=== PATIENT | male | born 1935 | race Caucasian/White ===

== ENCOUNTER → 2017-03-17 | Outpatient (CLI) | payer MEDICARE, BC ==
--- NOTE | 2017-03-17 16:02 | RAD ---
APPROVED REPORT Patient Location : OUT-PATIENT Indications Deep System Deep Venous Thrombosis present : No Deep Venous Reflux present : No Greater Saphenous Veins (GSV) Significant venous relux noted in the RIGHT GSV at the following levels : Superficial Femoral Junctio n, Proximal Thigh, Mid Thigh, Distal Thigh, Proximal Calf, Mid Calf, Distal Calf Significant venous relux noted in the LEFT GSV at the following levels : Superficial Femoral Junction , Proximal Thigh, Mid Thigh, Distal Thigh, Proximal Calf, , Mid Calf, Distal Calf Findings Cruz scale images of the bilateral saphenofemoral junctions do not reveal any evidence of thrombus. L imited grayscale images of the great saphenous vein do not reveal any evidence of thrombus. Limited i mages of the lesser saphenous vein also do not reveal any evidence of thrombus. The right great saphe nous vein measures approximately 4.4 mm in greatest diameter and has a reflux time of 4.2 seconds. Th e left great saphenous vein measures approximately 7.5 mm in greatest diameter and has a reflux time of 4.3 seconds. The bilateral lesser saphenous veins do not demonstrate any evidence of reflux. Critical Notification Critical Value: No <Conclusion> Positive for reflux in the bilateral greater saphenous veins.
--- NOTE | 2017-03-17 16:07 | RAD ---
APPROVED REPORT Patient Location: OUT-PATIENT Indications Rest Pain:Bilaterally VELOCITY AND DOPPLER WAVEFORM ANALYSIS RIGHT cm/secWaveformSeverity LEFT c m/secWaveformSeverity Ext Iliac Art. 103.0BiphasicExt Iliac Art. 79.0Biphasic pCFA 114.0BiphasicpCFA 101.0Biphasic dCFA 99.0BiphasicdCFA 91.0Biphasic Prof Fem Art. 57.0BiphasicProf Fem Art. 50.0Biphasic Fem Art Prox. 119.0BiphasicFem Art Prox. 98.0Biphasic Fem Art Mid. 102.0BiphasicFem Art Mid. 106.0Biphasic Fem Art Dist. 65.0BiphasicFem Art Dist. 85.0Biphasic Pop Art(AK) 75.0BiphasicPop Art(AK) 71.0Biphasic Pop Art(BK) 61.0BiphasicPop Art(BK) 72.0Biphasic ICE PULLER Prox. 43.0BiphasicPTA Prox. 62.0Biphasic ICE PULLER Dist. 23.0BiphasicPTA Dist. 105.0Biphasic Per Art Mid. 87.0BiphasicPer Art Mid. 63.0Biphasic CECILLE Prox. 67.0BiphasicATA Prox. 64.0Biphasic Image Findings Cruz scale images, spectral waveforms and color Doppler of the bilateral lower extremity arterial ves sels revealed the following findings: Velocities in the right common femoral, superficial femoral and popliteal segments are grossly normal . The distal posterior tibial artery on the right side appears to be diffusely diseased of greater th an 75% stenosis. The risks patency of the peroneal and anterior tibial vessels with likely 50% stenos is of the distal anterior tibial artery. No high-grade flow-limiting stenosis is identified above the knee. The left common femoral, superficial femoral and popliteal vessels do not demonstrate any evidence of high-grade disease. There is three-vessel runoff below the knee without any focal stenosis. Critical Notification Critical Value: No <Conclusion> 1. 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 No high-grade large vessel flow-limiting stenosis noted bi laterally.
--- NOTE | 2017-03-17 16:10 | RAD ---
APPROVED REPORT Bilateral Lower Extremity Venous Study for DVT Patient Location: OUT-PATIENT Indications Lower Extremity Pain: Bilateral Vein Imaging (Right) CFV (R): Compressible SFJ (R): Compressible FEM (R): Compressible POP (R): Compressible DFV (R): Compressible PTV (R): Spontaneous Peroneals (R): Spontaneous Vein Imaging (Left) CFV (L): Compressible SFJ (L): Compressible FEM (L): Compressible POP (L): Compressible DFV (L): Compressible PTV (L): Spontaneous Peroneals (L): Spontaneous Doppler Evaluation (Right) CFV (R): Spontaneous POP (R):Spontaneous Doppler Evaluation (Left) CFV (L):Spontaneous POP (L):Spontaneous Findings Limited grayscale images of the bilateral common femoral, superficial femoral, popliteal veins do not reveal any evidence of thrombus. There is normal compressibility and color Doppler flow noted. Bilaterally the below-knee veins are not well visualized but there is spontaneous flow noted. Critical Notification Critical Value: No <Conclusion> No evidence of DVT in the bilateral lower extremities.
== END | disposition home or self-care (01) ==
LOC: US 07:48
PROVIDERS: ATTEND Internal Medicine Cardiovascular Disease
DX: M79.604 Pain in right leg (principal); M79.605 Pain in left leg; M79.89 Other specified soft tissue disorders; K21.9 Gastro-esophageal reflux disease without esophagitis
CPT/HCPCS: 93925; 93970

== ENCOUNTER → 2019-02-02 | Outpatient (CLI) | payer MEDICARE, BC ==
[2019-02-02 11:44] LABS: BASO % 0 % (0-3); EOS # 0.1 x10^3/uL (0.0-0.7); EOS % 1 % (0-3); HEMATOCRIT 39.9 % (39.0-53.0); HEMOGLOBIN 13.4 g/dL (13.0-17.5); LYMPH # 0.5 x10^3/uL (1.0-4.8); LYMPH % 9 % (24-48); MEAN CORPUSCULAR HEMOGLOBIN 30 pg (25-35); MEAN CORPUSCULAR HGB CONC 34 g/dL (31-37); MEAN CORPUSCULAR VOLUME 88 fL (79-100); MONO # 0.6 x10^3/uL (0.0-1.1); MONO % 10 % (0-9); NEUT # 4.2 x10^3/uL (1.8-7.7); NEUT % 79 % (31-73); PLATELET COUNT 184 x10^3/uL (140-400); RED BLOOD COUNT 4.53 x10^6/uL (4.30-5.70); RED CELL DISTRIBUTION WIDTH 13.4 % (11.5-14.5); WHITE BLOOD COUNT 5.3 x10^3/uL (4.0-11.0)
[2019-02-02 12:06] LABS: CALCIUM 9.1 mg/dL (8.5-10.1); CREATININE 1.6 mg/dL (0.7-1.3); GFR 41.7; MAGNESIUM 2.1 mg/dL (1.8-2.4)
== END | disposition home or self-care (01) ==
LOC: LAB 11:00
PROVIDERS: ATTEND Internal Medicine Cardiovascular Disease
DX: I10 Essential (primary) hypertension (principal); R55 Syncope and collapse; N28.89 Other specified disorders of kidney and ureter
CPT/HCPCS: 36415; 80048; 83735; 84443; 85025

== ENCOUNTER 2019-03-14 09:11 | Observation (INO) | payer MEDICARE, BC ==
[2019-03-14] VITALS (15 sets, daily range): BP systolic 90–151; BP diastolic 62–80
[~2019-03-14] VITALS: Ht 170.2 cm; Wt 76.5 kg
[~2019-03-14 09:11] MED LIST: ceFAZolin 2GM PREMIX 2 GM/50 ML BAG IV ONE
--- NOTE | 2019-03-14 09:47 | EKG ---
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
[2019-03-14 09:52] LABS: HEMATOCRIT 39.8 % (39.0-53.0); HEMOGLOBIN 13.2 g/dL (13.0-17.5); RED BLOOD COUNT 4.45 x10^6/uL (4.30-5.70); RED CELL DISTRIBUTION WIDTH 13.9 % (11.5-14.5); WHITE BLOOD COUNT 5.2 x10^3/uL (4.0-11.0)
[2019-03-14] MEDS ORDERED: ASPI1TAB88 PO (09:56)
[2019-03-14] MEDS ORDERED: ASPI81TA50 PO (09:56)
[2019-03-14] MEDS ORDERED: TRIA1CAP3 PO (09:56)
[2019-03-14 10:08] LABS: CALCIUM 9.2 mg/dL (8.5-10.1); CREATININE 1.7 mg/dL (0.7-1.3); GFR 38.9
[2019-03-14 10:09] LABS: PROTHROMBIN TIME PATIENT 13.6 SEC (11.7-14.0)
[2019-03-14] MEDS ORDERED: BACITRACIN 50,000 UNIT in IV NORMAL SALINE 250ML 250 ML IRR ONE (11:00)
[2019-03-14] MEDS ORDERED: IODIXANOL 320 MG/ML 100 ML VIAL. ONE (11:26)
[2019-03-14] MEDS ORDERED: fentaNYL PF VIAL 100 MCG/2 ML VIAL ONE (11:34)
[2019-03-14] MEDS ORDERED: MIDAZOLAM HCL/PF 2 MG/2 ML VIAL. ONE ×2 (11:34→12:12)
[2019-03-14] MEDS ORDERED: LIDOCAINE 2%/EPI 1:100,000 20 ML VIAL. ONE (11:40)
[2019-03-14] MEDS ORDERED: IOHEXOL 300 MG/ML 100ML VIAL. ONE (12:11)
[2019-03-14] MEDS ORDERED: MIDAZOLAM HCL/PF 2 MG/2 ML VIAL. IV ONE (12:30)
[2019-03-14] MEDS ORDERED: IOHEXOL 300 MG/ML 100ML VIAL. IV ONE (12:30)
[2019-03-14] MEDS ORDERED: LIDOCAINE 2%/EPI 1:100,000 20 ML VIAL. IJ ONE (12:30)
[2019-03-14] MEDS ORDERED: fentaNYL PF VIAL 100 MCG/2 ML VIAL IV ONE (12:30)
--- NOTE | 2019-03-14 13:04 | PDOC ---
MODERATE SEDATION ASSESSMENT RISKS/ALTERNATIVES Risks/Alternatives Risks and alternatives of this type of sedation and procedure discussed with: RISK/ALTERNATIVES: Patient H & P ON CHART H & P H & P on chart and reviewed for co-morbid conditions and appropriate labs. H&P ON CHART: Yes STATUS PREG STATUS ASSESSED: N/A MEDS/ALLERGIES REVIEWED Meds/Allergies Reviewed Medications and Allergies including time and route of recently administered narcotics and sedatives. MEDS/ALLERGIES REVIEWED: Yes ASA RATING ASA RATING: II AIRWAY ASSESSMENT Airway Assessment Airway patency, oral function limitations, presence of caps, crowns, dentures, partials, and ability to extend neck assessed. AIRWAY ASSESSMENT: Yes MALLAMPATI SCORE MALLAMPATI SCORE: II PRE-SEDATION ASSESSMENT PRE-SEDATION ASSESSMENT: Yes KIRT DOUGLAS MD Mar 14, 2019 13:04
--- NOTE | 2019-03-14 13:10 | NUR ---
The patient, ADRIENNE PEDRAZA, 83 y/o, M admitted by KIRT DOUGLAS MD, was given written information regarding hospital policies, unit procedures and contact persons. 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 Patient alert and oriented, VS stable, no complaints of pain. Pressure dressing and immobilizer in place. Call light within reach. Will continue to monitor.
[2019-03-14] MEDS ORDERED: NO ANTICOAGULANT THERAPY. MC PRN (13:15)
--- NOTE | 2019-03-14 14:32 | RAD ---
PORTABLE CHEST 1V History: Post pacemaker placement. Comparison: None. Findings: Interval placement left transvenous pacemaker with RA and RV leads. No pneumothorax. Bilateral acromioclavicular DJD. Mild elevation of the left hemidiaphragm. Left basilar linear atelectasis. Normal heart size. No pleural effusion. Impression: 1. Interval placement left sided pacemaker. No pneumothorax. Electronically signed by: Francisco Lora DO (03/14/2019 2:29 PM) [facility]
[2019-03-14] MEDS: TRIAMTERENE/HCTZ 37.5/25MG TABLET. PO SCH (15:00)
--- NOTE | 2019-03-14 15:23 | CARD ---
MR#: [id number] Date of Study: 03/14/2019 Ordering Physician: KIRT RUST, Referring Physician: Amish RODRÍGUEZ: RT Satnam (Roc) APPROVED REPORT PROCEDURES Successful implantation of Biotronik dual-chamber permanent pacemaker Contrast 20ml Sedation Time 51 minutes fluoro time: 2.1 min DAP: 45 Gycm2 INDICATIONS Sick sinus syndrome with pauses of greater than 4.5 seconds and recurrent syncope PROCEDURE After explaining the risks, benefits, and alternative options, informed consent was obtained from the patient. The patient was brought to the cardiac catheterization lab and the left chest and shoulder were prepp ed and draped in a sterile manner. 30 mL of 2% lidocaine was infiltrated into the skin and subcutaneous tissues for local anesthesia. An incision was made over the left infraclavicular fossa and using blunt dissection and cautery a pocke t was created. Venous access was obtained in the left subclavian vein and 8 and 6 Kosovan sheaths inse rted. A Biotronik bipolar active fixation right ventricular lead model Solia, serial #[id number] was advanced under fluoroscopy guidance and the tip was positioned in the right ventricular apex. Following this, a Biotronik bipolar active fixation right atrial lead model Solia, serial #[id number] was positioned i n the right atrial appendage under fluoroscopy guidance. The leads were secured into place and attach ed to a Biotronik dual-chamber permanent pacemaker generator model Eluna 8 -[place] ProMRI, serial #[id number]. This was placed in the pocket that was subsequently closed in 3 layers. Hemostasis was secured. The right ventricular lead showed a sensing amplitude of 5.9 mV, impedance of 636 ohms and a threshol d of 0.7 V. The right atrial lead showed a sensing amplitude of 2.3 mV, impedance of 483 ohms and a t hreshold of 0.7 V. Patient tolerated the procedure well. There were no immediate complications. CONCLUSION Successful implantation of Biotronik dual-chamber permanent pacemaker for symptomatic sick sinus synd gay. Signed by : Kirt Rust, Electronically Approved : 03/14/2019 15:22:52
[2019-03-14] MEDS: ASPIRIN ENTERIC COATED 81 MG TABLET.DR. PO SCH (21:44)
[2019-03-15 03:07] VITALS: BP 125/64
[2019-03-15 07:19] VITALS: BP 122/62
[2019-03-15] MEDS: ASPIRIN ENTERIC COATED 81 MG TABLET.DR. PO SCH (09:00)
[2019-03-15] MEDS: TRIAMTERENE/HCTZ 37.5/25MG TABLET. PO SCH (09:00)
--- NOTE | 2019-03-15 09:53 | NUR ---
Nursing: Patient stated he took his own Maxzide. Patient educated not to take own medications, patient verbalized understanding. Patient takes his aspirin before bed.
[2019-03-15 10:41] VITALS: BP 122/71
--- NOTE | 2019-03-15 11:50 | NUR ---
SS following for discharge planning. SS reviewed pt chart. Pt is from home with spouse and is currently on room air. No discharge needs noted at this time. SS will continue to follow for discharge planning.
--- NOTE | 2019-03-15 12:28 | RAD ---
CHEST PA LATERAL History: Post pacemaker implantation. Comparison: 03/14/2019 portable chest x-ray exam. Findings: Frontal and lateral views of chest were obtained. Lateral view is limited as both of the extremities are not raised and motion is also seen. Dual-lead left-sided pacemaker is present. Leads are intact and in place. The cardiomediastinal silhouette is normal. Pulmonary vasculature is normal. Minimal left basilar discoid atelectasis is present. No pneumothorax. No pleural effusion or pneumothorax is seen. There is no acute bone abnormality. IMPRESSION: Left-sided dual-lead pacemaker with leads in place. No pneumothorax. Minimal left basilar discoid atelectasis.. Electronically signed by: Radhames Mason MD (03/15/2019 12:25 PM) [facility]
--- NOTE | 2019-03-15 12:36 | PDOC3 ---
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 OPERATOR 03/15/19 1236: Discharge Summary Visit Information Date of Admission: Mar 14, 2019 Date of Discharge: Mar 15, 2019 Admitting Diagnosis Comment: SSS, recurrent syncope with pauses Final Diagnosis Recurrent syncope with pauses, SSS, S/P PPM Brief Hospital Course Allergies Allergies Coded Allergies Type Severity Reaction Last Updated Verified No Known Drug Allergies 03/14/19 No Vital Signs Vital Signs Date Time Temp Pulse Resp B/P (MAP) Pulse Ox O2 Delivery O2 Flow Rate FiO2 03/15/19 10:41 98.5 69 16 122/71 (88) 96 Room Air 98.5 03/14/19 12:53 2.0 Lab Results Laboratory Tests Test 03/14/19 09:37 White Blood Count 5.2 x10^3/uL (4.0-11.0) Red Blood Count 4.45 x10^6/uL (4.30-5.70) Hemoglobin 13.2 g/dL (13.0-17.5) Hematocrit 39.8 % (39.0-53.0) Mean Corpuscular Volume 90 fL (79-100) Mean Corpuscular Hemoglobin 30 pg (25-35) Mean Corpuscular Hemoglobin Concent 33 g/dL (31-37) Red Cell Distribution Width 13.9 % (11.5-14.5) Platelet Count 177 x10^3/uL (140-400) Prothrombin Time 13.6 SEC (11.7-14.0) Prothromb Time International Ratio 1.1 (0.8-1.1) Sodium Level 144 mmol/L (136-145) Potassium Level 4.0 mmol/L (3.5-5.1) Chloride Level 108 mmol/L (98-107) Carbon Dioxide Level 25 mmol/L (21-32) Anion Gap 11 (6-14) Blood Urea Nitrogen 35 mg/dL (8-26) Creatinine 1.7 mg/dL (0.7-1.3) Estimated GFR (Cockcroft-Gault) 38.9 Glucose Level 112 mg/dL (70-99) Calcium Level 9.2 mg/dL (8.5-10.1) Brief Hospital Course Mr Elias is an 83 yo male admitted for planned PPM placement for recurrent syncope with noted pauses via event monitor. Successful implantation of Biotronik dual-chamber permanent pacemaker for symptomatic SSS. Pt tolerated procedure well. Left surgical incision intact and dry with steri strips, no erythema or swelling or oozing. Neurovascular status to LUE intact. VSS. AOx3, LSCTA, no CP or SOA. Ambulatory with no difficulty. No immediate complications. Cr id 1.7 and 1.6 over a month ago. This appears to be chronic but he was not aware. He is on maxide and currently his BP has been controlled. Discussed NSAID avoidance and proper hydration. He will see his PCP next week and will defer further w/u in regards to CKD to his PCP. Follow up in office as scheduled. PPM post op care discussed. Follow up interrogation with normal function. Follow up CXR pending and if unremarkable then may DC today and follow up in 2 week for wound check. Discharge Information Condition at Discharge: Stable Follow Up: Weeks (2 wound check) Disposition/Orders: D/C to Home Scheduled Aspirin (Aspir-Low) 81 Mg Tablet., 1 TAB PO DAILY for heart health, #30 Ref 3 (Reported) Entered as Reported by: MARIPOSA MENDOZA on 03/14/19955 Last Taken: Unknown Dose on 03/13/19 Last Action: Continued on 03/14/191400 by KAREN SILVA RN Triamterene/Hydrochlorothiazid (Triamterene-Hctz 37.5-25 Mg Cp) 1 Each Capsule, 1 CAP PO DAILY for control blood pressure, #30 Ref 5 (Reported) Entered as Reported by: MARIPOSA MENDOZA on 03/14/19955 Last Taken: Unknown Dose on 03/14/19 0800 Last Action: Converted on 03/14/19 140 by KAREN SILVA RN Discontinued Medications Aspirin/Caffeine (Jeremi Back & Body Caplet) 1 Each Tablet, 1 EACH PO DAILY for backache, (Reported) Entered as Reported by: MARIPOSA MENDOZA on 03/14/19955 Last Taken: Unknown Dose on 03/13/19 Last Action: New Order on 03/14/19955 by MARIPOSA MENDOZA Patient Instructions Patient Instructions Must know & what to expect after device implant: 1. Your surgical dressing should be removed prior to discharge from the hospital, but allow the steri- strips to fall off naturally. 2. Activity restrictions: DO NOT raise arm above shoulder level, lift anything heavier than a gallon of milk, and no push or pull motions such as vacuuming/lawn mowing, no swinging motions (golf), etc for 4 weeks. 3. It is OK to use a cell phone or other electronic devices just be sure you do not store it in a breast pocket on the side where the device was placed. 4. Device will be interrogated prior to your discharge from the hospital and then every 3 months for defibrillators and every 6 months for pacemakers. You may be asked to have your device checked remotely from home as well, but this will depend on your particular physician�s preference. 5. You may remove the arm immobilizer the day after device placement. Wear the arm immobilizer/splint at night (during sleep times) for 2 week to prevent unintended arm movement that can cause lead dislodgement. 6. Do not drive for one week as the task of driving may lead to unintended arm motion that may cause lead dislodgement. The seatbelt will also rub against the incision site & cause irritation. 7. It is our recommendation that you utilize Tylenol at home for pain control. You need to call our office if you are having uncontrollable pain at the incision site. 8. Keep your incision clean and dry. It is OK to shower. DO NOT submerge in bath, pool, or hot tub, until cleared by your doctor, as this could lead to increase risk of infection.. It is OK to use regular soap just do not scrub the incision site. Water spray from shower should not directly hit the incision. Be sure to blot dry not rub. 9. Inspect your incision daily. If you notice any increased redness, swelling, or drainage, or if you start running a fever, call the office immediately. The number is [phone]. 10. For women, if you need to protect against irritation from the bra straps, you can place a piece of gauze over the incision site for cushion. Please be sure to tape it loosely to allow air to the site & remove the gauze when you remove the bra. 11. Be sure to carry your device identification information card in your wallet/purse at all times. 12. It is OK to go through security at the airport with your device, but be sure to let the TSA know prior to proceeding as the security settings change depending on varying factors. Please do whatever is requested by security at that time. 13. Some of the newer devices may be MRI compatible but, currently, the use of these devices is not widespread, so you likely will not be able to have an MRI. Please clarify this with your physician. If at any time, you feel lightheaded or dizzy/faint, stop what you are doing & lie down immediately. If you are driving, get to the side of the road quickly, turn your car off & call 911 on your cell phone. DO NOT continue to drive as t his may cause an accident that seriously injures yourself &/or others. Call the office at [phone] for any questions or concerns. KIRT DOUGLAS MD 03/15/19 1719: Discharge Summary Brief Hospital Course Brief Hospital Course Patient seen and examined. Agree with RN LABOR AND DELIVERY's assessment and plan. Patient underwent successful permanent pacemaker implantation yesterday. Incision looked good. Chest x-ray did not show any pneumothorax. Device interrogation showed normal function. Follow-up with our office as scheduled. LAILA HENRIQUEZ APRN Mar 15, 2019 12:36 KIRT DOUGLAS MD Mar 15, 2019 17:19
[2019-03-15 14:33] VITALS: BP 135/72
--- NOTE | 2019-03-15 16:39 | NUR ---
Discharge: Teaching verbal and written. Reviewed medications, follow-up, post pacemaker and precautions, diet, ect. Patient and family verbalized understand. 2 IV's removed without complications, catheter tip in-tact. All belongings with patient. 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
== END 2019-03-15 16:10 | disposition home or self-care (01) ==
LOC: CCL 09:11 → 2 SOUTH 09:45
PROVIDERS: ADMIT Internal Medicine Cardiovascular Disease; ATTEND Internal Medicine Cardiovascular Disease
DX: I49.5 Sick sinus syndrome (principal); R55 Syncope and collapse; I73.9 Peripheral vascular disease, unspecified; I12.9 Hypertensive chronic kidney disease with stage 1 through stage 4 chronic kidney disease, or unspecified chronic kidney disease; N18.9 Chronic kidney disease, unspecified
CPT/HCPCS: 33208; 36415; 71045; 71046; 80048; 85027; 85610; 93005; 96365; 96366; 96368; 96375; C1785; C1898; G0378; G0379; J0690; J0696; J2250; J3010; J3490; J7050; Q9967; 99152; 99153; J7030